=== PATIENT | male | born 1985 | race American Indian/Alaskan Native ===

== ENCOUNTER 2016-05-06 03:45 | Emergency (ER) | payer OTHER ==
[2016-05-06 04:04] VITALS: BP 144/81
[2016-05-06 04:42] LABS: Basophils % (Auto) 0.5 % (0.0-1.8); Eosinophils % (Auto) 0.3 % (0.0-4.3); Hematocrit 43.1 % (35.5-45.6); Hemoglobin 14.7 gm/dl (11.8-15.2); Mean Corpuscular HGB Conc 34 % (32-34); Mean Corpuscular Hemoglobin 32 pg (28-32); Mean Corpuscular Volume 94 fl (84-94); Platelet Count 200 K/mm3 (140-440); Red Blood Count 4.59 M/mm3 (3.65-5.03); Red Cell Distribution Width 12.7 % (13.2-15.2); White Blood Count 9.5 K/mm3 (4.5-11.0)
[2016-05-06 04:57] LABS: Alanine Aminotransferase 66 units/L (7-56); Albumin 4.8 g/dL (3.9-5); Albumin/Globulin Ratio 1.4 %; Alkaline Phosphatase 99 units/L (35-129); BUN/Creatinine Ratio 12.72; Bilirubin,Total 0.3 mg/dL (0.1-1.2); Blood Urea Nitrogen 14 mg/dL (9-20); Calcium 9.2 mg/dL (8.4-10.2); Carbon Dioxide 23 mmol/L (22-30); Chloride 98.1 mmol/L (98-107); Glucose 125 mg/dL (75-100); Lipase 38 units/L (13-60); Sodium 138 mmol/L (137-145); Total Protein 8.2 g/dL (6.3-8.2)
[2016-05-06 05:45] LABS: Anion Gap 21 mmol/L
--- NOTE | 2016-05-10 15:27 | ED Elopement Review ---
ED Pt Elopement review - Results review Lab results: Laboratory Tests 05/06/16 05/06/16 04:24 04:24 WBC 9.5 RBC 4.59 Hgb 14.7 Hct 43.1 MCV 94 MCH 32 MCHC 34 RDW 12.7 L Plt Count 200 Lymph % (Auto) 13.0 L Coke % (Auto) 6.2 Eos % (Auto) 0.3 Baso % (Auto) 0.5 Lymph # 1.2 Coke # 0.6 Eos # 0.0 Baso # 0.0 Seg Neutrophils % 80.0 H Seg Neutrophils # 7.6 Sodium 138 Potassium 4.0 Chloride 98.1 Carbon Dioxide 23 Anion Gap 21 BUN 14 Creatinine 1.1 Estimated GFR > 60 BUN/Creatinine Ratio 12.72 Glucose 125 H Calcium 9.2 Total Bilirubin 0.3 AST 56 H ALT 66 H Alkaline Phosphatase 99 Total Protein 8.2 Albumin 4.8 Albumin/Globulin Ratio 1.4 Lipase 38 - Call Back decision Pt Call Back Decision: Call pt to return to ED [facility] (patient was here with tachycardia and blood in his stool and needs to follow-up in the emergency department here or at another facility.)
== END 2016-05-06 10:35 | disposition left against medical advice (07) ==
LOC: ED 03:45
DX: R10.11 Right upper quadrant pain (principal); Z53.21 Procedure and treatment not carried out due to patient leaving prior to being seen by health care provider
CPT/HCPCS: 36415; 80053; 83690; 85025